=== PATIENT | male | born 1935 | race Caucasian/White ===

== ENCOUNTER 2019-12-18 15:50 | Inpatient (IN) ==
[2019-12-18] MEDS ORDERED: Isovue-370 500 ML BOTTLE IVP ONE (17:32)
[2019-12-18 17:34] LABS: Basophils % 0.5 %; Eosinophils % 0.4 %; Hematocrit 41.4 % (37.5-50.1); Hemoglobin 13.5 g/dL (12.9-16.9); Immature Granulocytes % 0.2 % (0-4); Lymphocytes # 0.4 K/mcL (0.6-4.6); Lymphocytes % 4.9 %; Mean Corpuscular HGB Conc 32.6 g/dL (31.6-35.5); Mean Corpuscular Volume 104.3 fL (83.0-100.0); Mean Platelet Volume 11.4 fL (9.4-12.4); Monocytes # 0.8 K/mcL (0.0-1.3); Monocytes % 9.5 %; Neutrophils # 7.1 K/mcL (1.6-8.9); Platelet Count 226 K/mcL (140-400); Red Blood Count 3.97 M/mcL (4.19-5.50); Red Cell Distribution Width 13.4 % (11.5-14.5); Segmented Neutrophils % 84.5 %; White Blood Count 8.4 K/mcL (4.3-11.1)
[2019-12-18 17:47] LABS: INR 1.5; Prothrombin Time 16.8 Seconds (9.4-12.1)
[2019-12-18 17:50] LABS: Activated Partial Thrombo Time 32.1 Seconds (26.0-36.0)
[2019-12-18 17:53] LABS: Alanine Aminotransferase 66 Units/L (7-52); Albumin 3.8 g/dL (3.5-5.7); Alkaline Phosphatase 327 Units/L (34-104); Amylase 46 Units/L (29-103); Aspartate Amino Transferase 96 Units/L (13-39); BUN/Creatinine Ratio 24 (6-26); Bilirubin,Direct 0.7 mg/dL (0.0-0.2); Bilirubin,Indirect 0.8 mg/dL (0.0-1.0); Bilirubin,Total 1.5 mg/dL (0.3-1.0); Blood Urea Nitrogen 23 mg/dL (8-23); Calcium 9.4 mg/dL (8.6-10.3); Carbon Dioxide 25 mEq/L (23-29); Chloride 98 mEq/L (98-107); Glucose 104 mg/dL (70-105); Lipase 37 Units/L (11-82); Osmolality,Calculated 280 (280-300); Potassium 4.5 mEq/L (3.5-5.1); Sodium 133 mEq/L (136-145); Total Protein 7.8 g/dL (6.4-8.9); eGFR For African Americans > 60 (> 60); eGFR For Non-African Americans > 60 (> 60)
[2019-12-18 19:05] LABS: Troponin I < 0.03 ng/mL (< 0.04)
[2019-12-18 19:06] LABS: Bacteria,Urine Few per hpf (None-Few); Bilirubin,Urine Small (Negative); Blood,Urine Negative (Negative); Calcium Oxalate Crystals,Urine Present; Clarity,Urine Turbid (Clear); Color,Urine Dark-Yellow (Yellow); Glucose,Urine (UA) Normal (Normal); Hyaline Casts,Urine Many per lpf (None Seen); Ketones,Urine 10 mg/dL (Negative); Leukocyte Esterase,Urine Trace (Negative); Mucus,Urine Many per lpf (None-Few); Nitrite,Urine Negative (Negative); Protein,Urine 200 mg/dL (Neg-Trace); Specific Gravity,Urine > 1.030 (1.010-1.025); Squamous Epithelial Cell,Urine Few per hpf (None-Few); WBC,Urine 15-30 per hpf (0-3)
[2019-12-18] MEDS ORDERED: Pantoprazole 40 MG VIAL IVP ONE (19:26)
[2019-12-18] MEDS ORDERED: 0.9 % Sodium Chloride 1,000 ML IVC STA (19:43)
[2019-12-18] MEDS ORDERED: *HR* HYDROcodone/Acet 5/325 mg TABLET PO PRN (21:22)
[2019-12-18] MEDS ORDERED: Naloxone 0.4 MG/ML INJ IVP PRN (21:22)
[2019-12-18] MEDS ORDERED: Ibuprofen 400 MG TABLET PO PRN (21:22)
[2019-12-18] MEDS ORDERED: Ondansetron 4 MG/2 ML VIAL IVP PRN (21:22)
[2019-12-18] MEDS ORDERED: 0.9 % Sodium Chloride 1,000 ML IVC SCH ×2 (21:30→22:00)
[2019-12-18 21:46] LABS: Magnesium 2.2 mg/dL (1.6-2.6)
[2019-12-18] MEDS ORDERED: *HR* Heparin 5,000 UNIT/ML VIAL SQ SCH (22:00)
[2019-12-19 00:32] LABS: Protein/Creatinine Ratio,Urine 0.34 mg/mg (0.00-0.20)
[2019-12-19 02:35] LABS: Hematocrit 37.7 % (37.5-50.1); Hemoglobin 12.2 g/dL (12.9-16.9); Mean Corpuscular HGB Conc 32.4 g/dL (31.6-35.5); Mean Platelet Volume 12.2 fL (9.4-12.4); Platelet Count 178 K/mcL (140-400); Red Blood Count 3.59 M/mcL (4.19-5.50); Red Cell Distribution Width 13.7 % (11.5-14.5); White Blood Count 8.2 K/mcL (4.3-11.1)
[2019-12-19 02:41] LABS: INR 1.5; Prothrombin Time 17.1 Seconds (9.4-12.1)
[2019-12-19 02:55] LABS: Magnesium 2.1 mg/dL (1.6-2.6); Phosphorous 3.3 mg/dL (2.7-4.5)
[2019-12-19 02:59] LABS: BUN/Creatinine Ratio 26 (6-26); Blood Urea Nitrogen 20 mg/dL (8-23); C-Reactive Protein 43 mg/L (Less than 10); Calcium 8.5 mg/dL (8.6-10.3); Carbon Dioxide 23 mEq/L (23-29); Chloride 103 mEq/L (98-107); Glucose 89 mg/dL (70-105); Osmolality,Calculated 282 (280-300); Potassium 4.2 mEq/L (3.5-5.1); Sodium 135 mEq/L (136-145); eGFR For African Americans > 60 (> 60); eGFR For Non-African Americans > 60 (> 60)
[2019-12-19 03:11] LABS: Thyroid Stimulating Hormone 1.568 mcIU/mL (0.340-5.600)
[2019-12-19] MEDS: Pantoprazole 40 MG VIAL IVP SCH ×2 (05:15→17:49)
[2019-12-19 08:45] LABS: Bilirubin,Direct 1.1 mg/dL (0.0-0.2); Bilirubin,Indirect 0.8 mg/dL (0.0-1.0); Bilirubin,Total 1.9 mg/dL (0.3-1.0); Globulin 3.1 g/dL (2.4-3.5); Total Protein 6.1 g/dL (6.4-8.9)
[2019-12-19] MEDS ORDERED: Lidocaine -MPF 2% 2 ML VIAL ONE ×2 (12:54→13:38)
[2019-12-19] MEDS ORDERED: *HR* Propofol 200 MG/20 ML VIAL IVP ONE ×2 (12:54→13:36)
[2019-12-19] MEDS ORDERED: *HR* EPINEPHrine 1 MG/10 ML SYRINGE INTRATRACH PRN (13:38)
[2019-12-19] MEDS ORDERED: Ondansetron 4 MG/2 ML VIAL ONE (13:52)
[2019-12-19] MEDS: cefTRIAXone 1,000 MG in Water for inj. (sterile) 10 ML IVP SCH (14:08)
[2019-12-19 15:16] LABS: Hematocrit 36.1 % (37.5-50.1); Hemoglobin 11.8 g/dL (12.9-16.9)
[2019-12-20 05:22] LABS: Basophils % 0.2 %; Eosinophils # 0.1 K/mcL (0.0-0.6); Eosinophils % 0.6 %; Hematocrit 34.7 % (37.5-50.1); Hemoglobin 11.1 g/dL (12.9-16.9); Immature Granulocytes % 0.5 % (0-4); Lymphocytes # 0.4 K/mcL (0.6-4.6); Mean Corpuscular Hemoglobin 33.2 pg (28.0-33.3); Mean Corpuscular Volume 103.9 fL (83.0-100.0); Mean Platelet Volume 11.3 fL (9.4-12.4); Monocytes # 0.8 K/mcL (0.0-1.3); Neutrophils # 6.7 K/mcL (1.6-8.9); Platelet Count 179 K/mcL (140-400); Red Blood Count 3.34 M/mcL (4.19-5.50); Red Cell Distribution Width 13.9 % (11.5-14.5); Segmented Neutrophils % 83.7 %
[2019-12-20] MEDS: Pantoprazole 40 MG VIAL IVP SCH ×2 (05:41→17:57)
[2019-12-20 05:43] LABS: Alanine Aminotransferase 89 Units/L (7-52); Albumin 2.9 g/dL (3.5-5.7); Albumin/Globulin Ratio 0.9 (1.1-2.2); Alkaline Phosphatase 295 Units/L (34-104); Aspartate Amino Transferase 116 Units/L (13-39); BUN/Creatinine Ratio 26 (6-26); Bilirubin,Total 1.4 mg/dL (0.3-1.0); Blood Urea Nitrogen 20 mg/dL (8-23); Calcium 8.6 mg/dL (8.6-10.3); Carbon Dioxide 24 mEq/L (23-29); Chloride 104 mEq/L (98-107); Globulin 3.2 g/dL (2.4-3.5); Glucose 78 mg/dL (70-105); Osmolality,Calculated 283 (280-300); Potassium 4.1 mEq/L (3.5-5.1); Sodium 136 mEq/L (136-145); Total Protein 6.1 g/dL (6.4-8.9); eGFR For African Americans > 60 (> 60); eGFR For Non-African Americans > 60 (> 60)
[2019-12-20] MEDS: cefTRIAXone 1,000 MG in Water for inj. (sterile) 10 ML IVP SCH (08:36)
[2019-12-20] MEDS: Ringers Solution, Lactated 1,000 ML IVC SCH ×2 (08:36→21:35)
[2019-12-20] MEDS ORDERED: *HR* FentaNYL (PF) 100 MCG/2 ML VIAL IVP ONE (09:03)
[2019-12-20] MEDS ORDERED: *HR* Midazolam HCl 2 MG/2 ML VIAL IVP ONE (09:03)
[2019-12-20] MEDS: traZODone 50 MG TABLET PO SCH (20:47)
[2019-12-21 04:00] LABS: Basophils % 0.4 %; Eosinophils # 0.1 K/mcL (0.0-0.6); Hematocrit 33.1 % (37.5-50.1); Hemoglobin 10.7 g/dL (12.9-16.9); Immature Granulocytes % 0.6 % (0-4); Lymphocytes # 0.3 K/mcL (0.6-4.6); Lymphocytes % 4.4 %; Mean Corpuscular HGB Conc 32.3 g/dL (31.6-35.5); Mean Corpuscular Hemoglobin 33.5 pg (28.0-33.3); Mean Corpuscular Volume 103.8 fL (83.0-100.0); Mean Platelet Volume 11.6 fL (9.4-12.4); Monocytes # 0.9 K/mcL (0.0-1.3); Neutrophils # 6.3 K/mcL (1.6-8.9); Platelet Count 170 K/mcL (140-400); Red Blood Count 3.19 M/mcL (4.19-5.50); Red Cell Distribution Width 13.7 % (11.5-14.5); Segmented Neutrophils % 81.6 %; White Blood Count 7.8 K/mcL (4.3-11.1)
[2019-12-21 04:17] LABS: Alanine Aminotransferase 84 Units/L (7-52); Albumin 2.7 g/dL (3.5-5.7); Albumin/Globulin Ratio 0.9 (1.1-2.2); Alkaline Phosphatase 323 Units/L (34-104); Aspartate Amino Transferase 116 Units/L (13-39); BUN/Creatinine Ratio 24 (6-26); Bilirubin,Total 1.7 mg/dL (0.3-1.0); Blood Urea Nitrogen 16 mg/dL (8-23); Carbon Dioxide 23 mEq/L (23-29); Chloride 102 mEq/L (98-107); Glucose 73 mg/dL (70-105); Osmolality,Calculated 278 (280-300); Sodium 134 mEq/L (136-145); Total Protein 5.7 g/dL (6.4-8.9); eGFR For African Americans > 60 (> 60); eGFR For Non-African Americans > 60 (> 60)
[2019-12-21] MEDS: Pantoprazole 40 MG VIAL IVP SCH ×2 (05:07→18:07)
[2019-12-21] MEDS: Ringers Solution, Lactated 1,000 ML IVC SCH ×2 (10:10→23:33)
[2019-12-21] MEDS: cefTRIAXone 1,000 MG in Water for inj. (sterile) 10 ML IVP SCH (10:10)
[2019-12-21] MEDS: traZODone 50 MG TABLET PO SCH (21:29)
[2019-12-22] MEDS: Pantoprazole 40 MG VIAL IVP SCH ×2 (05:29→16:54)
[2019-12-22 05:43] LABS: INR 1.7; Prothrombin Time 18.9 Seconds (9.4-12.1)
[2019-12-22 05:45] LABS: Basophils % 0.3 %; Eosinophils # 0.1 K/mcL (0.0-0.6); Hematocrit 33.1 % (37.5-50.1); Hemoglobin 10.6 g/dL (12.9-16.9); Immature Granulocytes % 0.7 % (0-4); Lymphocytes # 0.3 K/mcL (0.6-4.6); Lymphocytes % 4.3 %; Mean Corpuscular Hemoglobin 33.2 pg (28.0-33.3); Mean Corpuscular Volume 103.8 fL (83.0-100.0); Mean Platelet Volume 11.4 fL (9.4-12.4); Monocytes # 0.8 K/mcL (0.0-1.3); Monocytes % 10.6 %; Neutrophils # 6.4 K/mcL (1.6-8.9); Platelet Count 170 K/mcL (140-400); Red Blood Count 3.19 M/mcL (4.19-5.50); Red Cell Distribution Width 13.8 % (11.5-14.5); Segmented Neutrophils % 83.1 %; White Blood Count 7.7 K/mcL (4.3-11.1)
[2019-12-22 06:00] LABS: Alanine Aminotransferase 117 Units/L (7-52); Albumin 2.7 g/dL (3.5-5.7); Albumin/Globulin Ratio 0.9 (1.1-2.2); Alkaline Phosphatase 377 Units/L (34-104); Aspartate Amino Transferase 173 Units/L (13-39); BUN/Creatinine Ratio 21 (6-26); Bilirubin,Total 2.7 mg/dL (0.3-1.0); Blood Urea Nitrogen 15 mg/dL (8-23); Calcium 8.4 mg/dL (8.6-10.3); Carbon Dioxide 27 mEq/L (23-29); Chloride 100 mEq/L (98-107); Glucose 71 mg/dL (70-105); Osmolality,Calculated 277 (280-300); Potassium 4.1 mEq/L (3.5-5.1); Sodium 134 mEq/L (136-145); Total Protein 5.7 g/dL (6.4-8.9); eGFR For African Americans > 60 (> 60); eGFR For Non-African Americans > 60 (> 60)
[2019-12-22] MEDS ORDERED: *HR* Vasopressin 20 UNIT/ML VIAL ONE (07:12)
[2019-12-22] MEDS ORDERED: Lidocaine -MPF 2% 2 ML VIAL ONE (07:18)
[2019-12-22] MEDS ORDERED: *HR* FentaNYL (PF) 100 MCG/2 ML VIAL ONE (07:18)
[2019-12-22] MEDS ORDERED: *HR* Rocuronium Bromide 50 MG/5 ML VIAL ONE ×2 (07:18→09:08)
[2019-12-22] MEDS ORDERED: Ondansetron 4 MG/2 ML VIAL ONE (07:18)
[2019-12-22] MEDS ORDERED: *HR* Propofol 200 MG/20 ML VIAL IVP ONE (07:18)
[2019-12-22] MEDS ORDERED: Dexamethasone 4 MG/ML VIAL ONE (07:18)
[2019-12-22] MEDS ORDERED: *HR* Labetalol 20 MG/4 ML SYRINGE IVP PRN (07:21)
[2019-12-22] MEDS ORDERED: *HR* Meperidine 25 MG/ML SYRINGE IVP PRN (07:21)
[2019-12-22] MEDS ORDERED: *HR* HYDROmorphone PF 0.5 MG/0.5 ML SYRINGE IVP PRN (07:21)
[2019-12-22] MEDS ORDERED: *HR* Midazolam HCl 2 MG/2 ML VIAL IVP PRN (07:21)
[2019-12-22] MEDS ORDERED: *HR* FentaNYL (PF) 100 MCG/2 ML VIAL IVP PRN (07:21)
[2019-12-22] MEDS ORDERED: *HR* Promethazine 25 MG/ML VIAL IVP PRN (07:21)
[2019-12-22] MEDS ORDERED: *HR* PHENYLEPHRINE 1,000 MCG/10 ML SYRINGE IVP ONE ×3 (07:59→09:05)
[2019-12-22] MEDS ORDERED: ceFAZolin 2,000 MG in Water for inj. (sterile) 20 ML IVP ONE (08:43)
[2019-12-22] MEDS ORDERED: *HR* Phenylephrine 10 MG/ML VIAL ONE (09:10)
[2019-12-22] MEDS ORDERED: EPHEDrine 50 MG/ML VIAL ONE (09:15)
[2019-12-22] MEDS ORDERED: *HR* HYDROMORPHONE 2 MG/ML VIAL ONE (09:36)
[2019-12-22] MEDS: Ringers Solution, Lactated 1,000 ML IVC SCH ×2 (11:28→23:36)
[2019-12-22] MEDS ORDERED: Naloxone 0.4 MG/ML INJ IVP PRN (11:32)
[2019-12-22] MEDS: *HR* Heparin 5,000 UNIT/ML VIAL SQ SCH ×2 (12:38→16:59)
[2019-12-22] MEDS: Acetaminophen IV 1,000 MG/100 ML INFUS..BTL IVPB SCH ×3 (13:35→23:35)
[2019-12-22] MEDS ORDERED: CeFAZolin 2 GM/120 ML BAG IVPB SCH (16:00)
[2019-12-22] MEDS: ceFAZolin 2,000 MG in 0.9 % Sodium Chloride 100 ML IVPB SCH ×2 (17:03→23:34)
[2019-12-22] MEDS ORDERED: traZODone 50 MG TABLET PO SCH (21:00)
[2019-12-22] MEDS: Chloraseptic Spray 177 ML BOTTLE MM PRN (23:41)
[2019-12-23 03:02] LABS: BUN/Creatinine Ratio 24 (6-26); Blood Urea Nitrogen 23 mg/dL (8-23); Calcium 8.5 mg/dL (8.6-10.3); Carbon Dioxide 24 mEq/L (23-29); Chloride 99 mEq/L (98-107); Glucose 93 mg/dL (70-105); Osmolality,Calculated 281 (280-300); Phosphorous 4.5 mg/dL (2.7-4.5); Potassium 4.2 mEq/L (3.5-5.1); Sodium 134 mEq/L (136-145); Triglycerides 73 mg/dL (< 150); eGFR For African Americans > 60 (> 60); eGFR For Non-African Americans > 60 (> 60)
[2019-12-23] MEDS: Acetaminophen IV 1,000 MG/100 ML INFUS..BTL IVPB SCH ×3 (05:19→18:45)
[2019-12-23] MEDS: Pantoprazole 40 MG VIAL IVP SCH ×2 (05:21→18:14)
[2019-12-23] MEDS: *HR* Heparin 5,000 UNIT/ML VIAL SQ SCH (05:21)
[2019-12-23] MEDS: Chloraseptic Spray 177 ML BOTTLE MM PRN (05:41)
[2019-12-23] MEDS ORDERED: Dextrose Gel 15 GM/37.5 ML TUBE PO PRN ×2 (08:54)
[2019-12-23] MEDS ORDERED: D5% in Water 1,000 ML IVC PRN (08:54)
[2019-12-23] MEDS ORDERED: *HR* Dextrose 50 % in Water (Vial) 50 ML VIAL IVP PRN (08:54)
[2019-12-23 08:58] LABS: Hematocrit 36.4 % (37.5-50.1); Hemoglobin 11.8 g/dL (12.9-16.9); Mean Corpuscular HGB Conc 32.4 g/dL (31.6-35.5); Mean Corpuscular Hemoglobin 34.6 pg (28.0-33.3); Mean Corpuscular Volume 106.7 fL (83.0-100.0); Platelet Count 158 K/mcL (140-400); Red Blood Count 3.41 M/mcL (4.19-5.50); Red Cell Distribution Width 14.5 % (11.5-14.5); White Blood Count 9.1 K/mcL (4.3-11.1)
[2019-12-23] MEDS: ceFAZolin 2,000 MG in 0.9 % Sodium Chloride 100 ML IVPB SCH (08:59)
[2019-12-23] MEDS ORDERED: D10% in Water 500 ML IVC PRN (10:49)
[2019-12-23] MEDS: Ringers Solution, Lactated 1,000 ML IVC SCH ×2 (11:57→13:39)
[2019-12-23] MEDS: Insulin LISPRO 300 UNITS/3 ML VIAL SQ SCH ×4 (13:34→23:44)
[2019-12-23 16:49] LABS: Hematocrit 33.4 % (37.5-50.1); Hemoglobin 10.5 g/dL (12.9-16.9)
[2019-12-23] MEDS ORDERED: Clinimix E 5%-15% SOLUTION 2,000 ML with MVI, adult with vitamin K 10 ML IVC SCH (17:00)
[2019-12-23 23:55] LABS: Hematocrit 31.6 % (37.5-50.1); Hemoglobin 10.3 g/dL (12.9-16.9)
[2019-12-24] MEDS: Acetaminophen IV 1,000 MG/100 ML INFUS..BTL IVPB SCH ×4 (00:35→18:09)
[2019-12-24] MEDS: Ringers Solution, Lactated 1,000 ML IVC SCH (04:09)
[2019-12-24] MEDS: Insulin LISPRO 300 UNITS/3 ML VIAL SQ SCH ×6 (04:12→23:41)
[2019-12-24 06:24] LABS: BUN/Creatinine Ratio 36 (6-26); Blood Urea Nitrogen 27 mg/dL (8-23); Calcium 8.3 mg/dL (8.6-10.3); Carbon Dioxide 29 mEq/L (23-29); Chloride 102 mEq/L (98-107); Glucose 119 mg/dL (70-105); Magnesium 2.1 mg/dL (1.6-2.6); Osmolality,Calculated 286 (280-300); Phosphorous 1.9 mg/dL (2.7-4.5); Sodium 135 mEq/L (136-145); eGFR For African Americans > 60 (> 60); eGFR For Non-African Americans > 60 (> 60)
[2019-12-24] MEDS: Pantoprazole 40 MG VIAL IVP SCH ×2 (06:41→18:11)
[2019-12-24 06:44] LABS: Basophils % 0.1 %; Eosinophils # 0.1 K/mcL (0.0-0.6); Eosinophils % 1.3 %; Hematocrit 30.6 % (37.5-50.1); Hemoglobin 10.1 g/dL (12.9-16.9); Immature Granulocytes % 0.3 % (0-4); Lymphocytes # 0.3 K/mcL (0.6-4.6); Lymphocytes % 3.4 %; Mean Corpuscular Hemoglobin 34.7 pg (28.0-33.3); Mean Corpuscular Volume 105.2 fL (83.0-100.0); Mean Platelet Volume 12.1 fL (9.4-12.4); Monocytes # 0.7 K/mcL (0.0-1.3); Monocytes % 8.3 %; Neutrophils # 7.5 K/mcL (1.6-8.9); Platelet Count 171 K/mcL (140-400); Red Blood Count 2.91 M/mcL (4.19-5.50); Red Cell Distribution Width 14.8 % (11.5-14.5); Segmented Neutrophils % 86.6 %; White Blood Count 8.7 K/mcL (4.3-11.1)
[2019-12-24] MEDS ORDERED: Clinimix E 5%-15% SOLUTION 2,000 ML with MVI, adult with vitamin K 10 ML IVC SCH (17:00)
[2019-12-24] MEDS ORDERED: *HR* FentaNYL (PF) 100 MCG/2 ML VIAL IVP PRN (18:43)
[2019-12-25] MEDS: Insulin LISPRO 300 UNITS/3 ML VIAL SQ SCH ×6 (03:46→23:51)
[2019-12-25 03:56] LABS: Basophils % 0.2 %; Eosinophils # 0.2 K/mcL (0.0-0.6); Eosinophils % 1.6 %; Hematocrit 31.7 % (37.5-50.1); Hemoglobin 10.2 g/dL (12.9-16.9); Immature Granulocytes % 0.9 % (0-4); Lymphocytes # 0.4 K/mcL (0.6-4.6); Lymphocytes % 4.1 %; Mean Corpuscular HGB Conc 32.2 g/dL (31.6-35.5); Mean Corpuscular Hemoglobin 33.8 pg (28.0-33.3); Mean Platelet Volume 11.9 fL (9.4-12.4); Monocytes # 0.8 K/mcL (0.0-1.3); Monocytes % 7.8 %; Neutrophils # 8.2 K/mcL (1.6-8.9); Platelet Count 190 K/mcL (140-400); Red Blood Count 3.02 M/mcL (4.19-5.50); Red Cell Distribution Width 15.1 % (11.5-14.5); Segmented Neutrophils % 85.4 %; White Blood Count 9.6 K/mcL (4.3-11.1)
[2019-12-25 04:08] LABS: BUN/Creatinine Ratio 38 (6-26); Blood Urea Nitrogen 22 mg/dL (8-23); Calcium 8.2 mg/dL (8.6-10.3); Carbon Dioxide 28 mEq/L (23-29); Chloride 103 mEq/L (98-107); Glucose 115 mg/dL (70-105); Magnesium 2.2 mg/dL (1.6-2.6); Osmolality,Calculated 284 (280-300); Phosphorous 2.4 mg/dL (2.7-4.5); Potassium 3.9 mEq/L (3.5-5.1); Sodium 135 mEq/L (136-145); eGFR For African Americans > 60 (> 60); eGFR For Non-African Americans > 60 (> 60)
[2019-12-25] MEDS: Pantoprazole 40 MG VIAL IVP SCH ×2 (05:37→17:07)
[2019-12-25] MEDS ORDERED: Clinimix E 5%-15% SOLUTION 2,000 ML with MVI, adult with vitamin K 10 ML IVC SCH (17:00)
[2019-12-25] MEDS: Ondansetron 4 MG/2 ML VIAL IVP PRN (17:49)
[2019-12-25] MEDS: *HR* FentaNYL (PF) 100 MCG/2 ML VIAL IVP PRN ×2 (18:54→23:47)
[2019-12-26] MEDS: *HR* FentaNYL (PF) 100 MCG/2 ML VIAL IVP PRN ×2 (03:20→09:04)
[2019-12-26] MEDS: Insulin LISPRO 300 UNITS/3 ML VIAL SQ SCH ×5 (04:59→21:41)
[2019-12-26] MEDS: Pantoprazole 40 MG VIAL IVP SCH ×2 (06:22→16:56)
[2019-12-26 06:57] LABS: BUN/Creatinine Ratio 50 (6-26); Blood Urea Nitrogen 27 mg/dL (8-23); Calcium 8.3 mg/dL (8.6-10.3); Carbon Dioxide 30 mEq/L (23-29); Chloride 103 mEq/L (98-107); Glucose 107 mg/dL (70-105); Magnesium 2.2 mg/dL (1.6-2.6); Osmolality,Calculated 290 (280-300); Phosphorous 2.7 mg/dL (2.7-4.5); Potassium 3.9 mEq/L (3.5-5.1); Sodium 137 mEq/L (136-145); eGFR For African Americans > 60 (> 60); eGFR For Non-African Americans > 60 (> 60)
[2019-12-26] MEDS: *HR* FentaNYL PATCH 12 MCG PATCH TD SCH (13:33)
[2019-12-26] MEDS: Ondansetron 4 MG/2 ML VIAL IVP PRN ×2 (13:36→21:40)
[2019-12-26] MEDS ORDERED: *HR* FentaNYL (PF) 100 MCG/2 ML VIAL IVP ONE (15:40)
[2019-12-26] MEDS ORDERED: Clinimix E 5%-15% SOLUTION 2,000 ML with MVI, adult with vitamin K 10 ML IVC SCH (17:00)
[2019-12-26] MEDS: Morphine Sulfate 2 MG/ML SYRINGE IVP PRN ×2 (18:14→22:53)
[2019-12-26] MEDS: rOPINIRole 1 MG TABLET PO SCH (23:38)
[2019-12-27] MEDS: Insulin LISPRO 300 UNITS/3 ML VIAL SQ SCH ×6 (00:14→21:25)
[2019-12-27] MEDS: Morphine Sulfate 2 MG/ML SYRINGE IVP PRN ×3 (03:48→21:30)
[2019-12-27 04:34] LABS: BUN/Creatinine Ratio 60 (6-26); Blood Urea Nitrogen 33 mg/dL (8-23); Calcium 7.8 mg/dL (8.6-10.3); Carbon Dioxide 29 mEq/L (23-29); Chloride 103 mEq/L (98-107); Glucose 133 mg/dL (70-105); Magnesium 2.2 mg/dL (1.6-2.6); Osmolality,Calculated 293 (280-300); Phosphorous 2.7 mg/dL (2.7-4.5); Potassium 4.1 mEq/L (3.5-5.1); Sodium 137 mEq/L (136-145); eGFR For African Americans > 60 (> 60); eGFR For Non-African Americans > 60 (> 60)
[2019-12-27] MEDS: Ondansetron 4 MG/2 ML VIAL IVP PRN ×2 (06:03→17:24)
[2019-12-27] MEDS: Pantoprazole 40 MG VIAL IVP SCH ×2 (06:03→17:24)
[2019-12-27] MEDS ORDERED: Gadolinium Contrast Agent (WT Based) IV PRN (15:19)
[2019-12-27 16:47] LABS: Immature Reticulocyte % 41.6 % (11.0-38.0); Retculocyte # 0.14 M/mcL (0.05-0.10); Reticulocyte % 5.2 % (1.6-2.8)
[2019-12-27] MEDS ORDERED: Clinimix E 5%-15% SOLUTION 2,000 ML with MVI, adult with vitamin K 10 ML IVC SCH (17:00)
[2019-12-27 17:04] LABS: % Iron Saturation 13 % (20-55); Iron 32 mcg/dL (65-175); Transferrin 175 mg/dL (203-362)
[2019-12-27 17:29] LABS: Folate 6.2 ng/mL (3.0-16.0)
[2019-12-27 19:45] LABS: Basophils % 0.3 %; Eosinophils # 0.2 K/mcL (0.0-0.6); Eosinophils % 1.6 %; Hematocrit 28.1 % (37.5-50.1); Hemoglobin 8.8 g/dL (12.9-16.9); Immature Granulocytes % 0.9 % (0-4); Lymphocytes # 0.3 K/mcL (0.6-4.6); Lymphocytes % 2.9 %; Mean Corpuscular HGB Conc 31.3 g/dL (31.6-35.5); Mean Corpuscular Hemoglobin 34.8 pg (28.0-33.3); Mean Corpuscular Volume 111.1 fL (83.0-100.0); Mean Platelet Volume 11.7 fL (9.4-12.4); Monocytes # 0.9 K/mcL (0.0-1.3); Monocytes % 9.4 %; Neutrophils # 7.8 K/mcL (1.6-8.9); Nucleated Red Blood Cells 0.2 /100 WBC (0); Platelet Count 183 K/mcL (140-400); Red Blood Count 2.53 M/mcL (4.19-5.50); Red Cell Distribution Width 15.5 % (11.5-14.5); Segmented Neutrophils % 84.9 %; White Blood Count 9.2 K/mcL (4.3-11.1)
[2019-12-27 20:35] LABS: Macrocytosis Present (Not Present); Platelet Estimate Normal (Normal); Polychromasia 1+ (Not Present)
[2019-12-27] MEDS: rOPINIRole 1 MG TABLET PO SCH (21:31)
[2019-12-28] MEDS: Insulin LISPRO 300 UNITS/3 ML VIAL SQ SCH ×6 (00:34→20:20)
[2019-12-28] MEDS: Morphine Sulfate 2 MG/ML SYRINGE IVP PRN ×5 (01:21→20:24)
[2019-12-28] MEDS: Ondansetron 4 MG/2 ML VIAL IVP PRN (03:41)
[2019-12-28 04:33] LABS: BUN/Creatinine Ratio 66 (6-26); Blood Urea Nitrogen 38 mg/dL (8-23); Calcium 8.2 mg/dL (8.6-10.3); Carbon Dioxide 31 mEq/L (23-29); Chloride 103 mEq/L (98-107); Glucose 118 mg/dL (70-105); Magnesium 2.2 mg/dL (1.6-2.6); Osmolality,Calculated 294 (280-300); Phosphorous 2.9 mg/dL (2.7-4.5); Potassium 4.5 mEq/L (3.5-5.1); Sodium 137 mEq/L (136-145); eGFR For African Americans > 60 (> 60); eGFR For Non-African Americans > 60 (> 60)
[2019-12-28] MEDS: Pantoprazole 40 MG VIAL IVP SCH ×2 (05:36→17:32)
[2019-12-28] MEDS: Megestrol Acetate 400 MG/10 ML UDC PO SCH (08:55)
[2019-12-28] MEDS: Iron Sucrose Complex 200 MG in 0.9 % Sodium Chloride 100 ML IVPB SCH (09:09)
[2019-12-28] MEDS: Ondansetron 4 MG/2 ML VIAL IVP SCH ×3 (11:55→23:02)
[2019-12-28] MEDS ORDERED: Clinimix E 5%-15% SOLUTION 2,000 ML, Parenteral Amino Acid 10% 200 ML with MVI, adult ... IVC SCH (17:00)
[2019-12-28] MEDS: *HR* Heparin 5,000 UNIT/ML VIAL SQ SCH (17:32)
[2019-12-28] MEDS: rOPINIRole 1 MG TABLET PO SCH ×2 (20:19→22:55)
[2019-12-29] MEDS: Insulin LISPRO 300 UNITS/3 ML VIAL SQ SCH ×6 (00:53→21:11)
[2019-12-29] MEDS: Morphine Sulfate 2 MG/ML SYRINGE IVP PRN ×2 (03:01→20:53)
[2019-12-29 03:43] LABS: Basophils % 0.2 %; Eosinophils # 0.2 K/mcL (0.0-0.6); Eosinophils % 2.3 %; Hematocrit 27.1 % (37.5-50.1); Hemoglobin 8.4 g/dL (12.9-16.9); Immature Granulocytes % 1.7 % (0-4); Lymphocytes # 0.3 K/mcL (0.6-4.6); Lymphocytes % 3.3 %; Mean Corpuscular Hemoglobin 34.6 pg (28.0-33.3); Mean Corpuscular Volume 111.5 fL (83.0-100.0); Mean Platelet Volume 11.4 fL (9.4-12.4); Neutrophils # 8.2 K/mcL (1.6-8.9); Nucleated Red Blood Cells 0.2 /100 WBC (0); Platelet Count 231 K/mcL (140-400); Red Blood Count 2.43 M/mcL (4.19-5.50); Red Cell Distribution Width 16.3 % (11.5-14.5); Segmented Neutrophils % 82.5 %; White Blood Count 9.9 K/mcL (4.3-11.1)
[2019-12-29 04:02] LABS: BUN/Creatinine Ratio 62 (6-26); Blood Urea Nitrogen 54 mg/dL (8-23); Calcium 8.6 mg/dL (8.6-10.3); Carbon Dioxide 32 mEq/L (23-29); Chloride 101 mEq/L (98-107); Glucose 116 mg/dL (70-105); Magnesium 2.3 mg/dL (1.6-2.6); Osmolality,Calculated 300 (280-300); Phosphorous 3.1 mg/dL (2.7-4.5); Potassium 4.6 mEq/L (3.5-5.1); Sodium 137 mEq/L (136-145); eGFR For African Americans > 60 (> 60); eGFR For Non-African Americans > 60 (> 60)
[2019-12-29 04:20] LABS: Macrocytosis Present (Not Present); Platelet Estimate Normal (Normal); Polychromasia 1+ (Not Present)
[2019-12-29] MEDS: Pantoprazole 40 MG VIAL IVP SCH ×2 (05:39→18:42)
[2019-12-29] MEDS: *HR* Heparin 5,000 UNIT/ML VIAL SQ SCH (05:39)
[2019-12-29] MEDS: Ondansetron 4 MG/2 ML VIAL IVP SCH ×3 (05:39→18:42)
[2019-12-29] MEDS: Megestrol Acetate 400 MG/10 ML UDC PO SCH ×2 (09:15→16:47)
[2019-12-29] MEDS: Cyanocobalamin (B-12) 1,000 MCG TABLET PO SCH (09:16)
[2019-12-29] MEDS ORDERED: Scopolamine Patch 1.5 MG PATCH.TD72 TD SCH (09:30)
[2019-12-29] MEDS: Iron Sucrose Complex 200 MG in 0.9 % Sodium Chloride 100 ML IVPB SCH (10:41)
[2019-12-29] MEDS ORDERED: 0.9 % Sodium Chloride 1,000 ML IVC ONE (10:53)
[2019-12-29] MEDS: Metoclopramide 10 MG/2 ML VIAL IVP SCH ×2 (12:25→18:42)
[2019-12-29] MEDS: *HR* FentaNYL PATCH 12 MCG PATCH TD SCH (13:11)
[2019-12-29] MEDS: D5% in 0.45% NACL 1,000 ML IVC SCH (15:17)
[2019-12-29] MEDS ORDERED: Clinimix E 5%-15% SOLUTION 2,000 ML, Parenteral Amino Acid 10% 200 ML with MVI, adult ... IVC SCH (17:00)
[2019-12-30] MEDS: Insulin LISPRO 300 UNITS/3 ML VIAL SQ SCH ×3 (00:07→10:07)
[2019-12-30] MEDS: Ondansetron 4 MG/2 ML VIAL IVP SCH ×5 (00:30→23:05)
[2019-12-30] MEDS: Metoclopramide 10 MG/2 ML VIAL IVP SCH ×2 (00:30→05:00)
[2019-12-30] MEDS: Morphine Sulfate 2 MG/ML SYRINGE IVP PRN (02:57)
[2019-12-30 04:02] LABS: Basophils % 0.3 %; Eosinophils # 0.3 K/mcL (0.0-0.6); Eosinophils % 3.5 %; Hematocrit 24.4 % (37.5-50.1); Hemoglobin 7.6 g/dL (12.9-16.9); Immature Granulocytes % 1.8 % (0-4); Lymphocytes # 0.3 K/mcL (0.6-4.6); Lymphocytes % 3.5 %; Mean Corpuscular HGB Conc 31.1 g/dL (31.6-35.5); Mean Corpuscular Hemoglobin 34.2 pg (28.0-33.3); Mean Corpuscular Volume 109.9 fL (83.0-100.0); Monocytes % 10.1 %; Nucleated Red Blood Cells 0.6 /100 WBC (0); Platelet Count 242 K/mcL (140-400); Red Blood Count 2.22 M/mcL (4.19-5.50); Red Cell Distribution Width 16.3 % (11.5-14.5); Segmented Neutrophils % 80.8 %; White Blood Count 9.8 K/mcL (4.3-11.1)
[2019-12-30 04:21] LABS: BUN/Creatinine Ratio 53 (6-26); Blood Urea Nitrogen 40 mg/dL (8-23); Calcium 7.7 mg/dL (8.6-10.3); Carbon Dioxide 29 mEq/L (23-29); Chloride 104 mEq/L (98-107); Glucose 95 mg/dL (70-105); Magnesium 2.2 mg/dL (1.6-2.6); Osmolality,Calculated 296 (280-300); Phosphorous 2.3 mg/dL (2.7-4.5); Potassium 3.9 mEq/L (3.5-5.1); Sodium 138 mEq/L (136-145); Triglycerides 107 mg/dL (< 150); eGFR For African Americans > 60 (> 60); eGFR For Non-African Americans > 60 (> 60)
[2019-12-30] MEDS: D5% in 0.45% NACL 1,000 ML IVC SCH ×2 (04:59→19:04)
[2019-12-30] MEDS: Pantoprazole 40 MG VIAL IVP SCH (05:00)
[2019-12-30] MEDS: Megestrol Acetate 400 MG/10 ML UDC PO SCH (10:15)
[2019-12-30] MEDS: Cyanocobalamin (B-12) 1,000 MCG TABLET PO SCH (10:15)
[2019-12-30] MEDS: Iron Sucrose Complex 200 MG in 0.9 % Sodium Chloride 100 ML IVPB SCH (10:16)
[2019-12-30] MEDS ORDERED: 0.9 % Sodium Chloride 250 ML IVC SCH (17:45)
[2019-12-30 18:25] LABS: Hemoglobin 8.3 g/dL (12.9-16.9)
[2019-12-30] MEDS: Sennosides/Docusate Sodium TABLET PO SCH (21:46)
[2019-12-30 23:27] LABS: Hematocrit 24.2 % (37.5-50.1); Hemoglobin 7.6 g/dL (12.9-16.9)
[2019-12-31] MEDS ORDERED: Morphine Sulfate 2 MG/ML SYRINGE IVP ONE (00:23)
[2019-12-31 04:47] LABS: Hematocrit 24.8 % (37.5-50.1); Hemoglobin 7.8 g/dL (12.9-16.9); Mean Corpuscular HGB Conc 31.5 g/dL (31.6-35.5); Mean Corpuscular Volume 111.2 fL (83.0-100.0); Mean Platelet Volume 11.1 fL (9.4-12.4); Platelet Count 250 K/mcL (140-400); Red Blood Count 2.23 M/mcL (4.19-5.50); White Blood Count 11.1 K/mcL (4.3-11.1)
[2019-12-31 05:05] LABS: BUN/Creatinine Ratio 45 (6-26); Blood Urea Nitrogen 31 mg/dL (8-23); Calcium 7.6 mg/dL (8.6-10.3); Carbon Dioxide 24 mEq/L (23-29); Chloride 104 mEq/L (98-107); Glucose 89 mg/dL (70-105); Osmolality,Calculated 292 (280-300); Potassium 3.9 mEq/L (3.5-5.1); Sodium 138 mEq/L (136-145); eGFR For African Americans > 60 (> 60); eGFR For Non-African Americans > 60 (> 60)
[2019-12-31] MEDS: Ondansetron 4 MG/2 ML VIAL IVP SCH ×2 (05:34→12:22)
[2019-12-31 08:19] LABS: Magnesium 2.3 mg/dL (1.6-2.6); Phosphorous 3.1 mg/dL (2.7-4.5)
[2019-12-31] MEDS: Cyanocobalamin (B-12) 1,000 MCG TABLET PO SCH (09:08)
[2019-12-31] MEDS: Megestrol Acetate 400 MG/10 ML UDC PO SCH (09:08)
[2019-12-31] MEDS: Sennosides/Docusate Sodium TABLET PO SCH ×2 (09:09→20:29)
[2019-12-31] MEDS: D5% in 0.45% NACL 1,000 ML IVC SCH (09:15)
[2019-12-31] MEDS: Iron Sucrose Complex 200 MG in 0.9 % Sodium Chloride 100 ML IVPB SCH (09:19)
[2019-12-31] MEDS ORDERED: *HR* LORazepam 2 MG/ML VIAL IVP ONE (14:16)
[2019-12-31] MEDS ORDERED: *HR* LORazepam 0.5 MG TABLET PO PRN (14:19)
[2019-12-31] MEDS ORDERED: Water for inj. (sterile) 10 ML ONE (15:00)
[2019-12-31] MEDS ORDERED: *HR* Alteplase (Cathflo) 2 MG VIAL IVP STA ×2 (16:09→16:11)
[2019-12-31] MEDS: Haloperidol Oral Conc 10 MG/5 ML UDC PO SCH ×4 (16:37→23:51)
[2019-12-31] MEDS ORDERED: Metoclopramide 10 MG/2 ML VIAL IVP SCH (18:00)
[2019-12-31 22:56] LABS: Hematocrit 25.1 % (37.5-50.1); Hemoglobin 7.8 g/dL (12.9-16.9)
[2020-01-01] MEDS: D5% in 0.45% NACL 1,000 ML IVC SCH ×2 (02:43→16:03)
[2020-01-01 05:57] LABS: Hematocrit 25.3 % (37.5-50.1); Mean Corpuscular HGB Conc 31.6 g/dL (31.6-35.5); Mean Corpuscular Hemoglobin 35.7 pg (28.0-33.3); Mean Corpuscular Volume 112.9 fL (83.0-100.0); Mean Platelet Volume 11.1 fL (9.4-12.4); Platelet Count 231 K/mcL (140-400); Red Blood Count 2.24 M/mcL (4.19-5.50); Red Cell Distribution Width 17.3 % (11.5-14.5); White Blood Count 15.1 K/mcL (4.3-11.1)
[2020-01-01 06:16] LABS: BUN/Creatinine Ratio 38 (6-26); Blood Urea Nitrogen 27 mg/dL (8-23); Calcium 7.9 mg/dL (8.6-10.3); Carbon Dioxide 27 mEq/L (23-29); Chloride 104 mEq/L (98-107); Glucose 85 mg/dL (70-105); Magnesium 2.2 mg/dL (1.6-2.6); Osmolality,Calculated 284 (280-300); Phosphorous 2.8 mg/dL (2.7-4.5); Potassium 3.8 mEq/L (3.5-5.1); Sodium 135 mEq/L (136-145); eGFR For African Americans > 60 (> 60); eGFR For Non-African Americans > 60 (> 60)
[2020-01-01] MEDS: Haloperidol Oral Conc 10 MG/5 ML UDC PO SCH ×4 (07:48→23:35)
[2020-01-01 08:50] LABS: Basophils % 0.3 %; Eosinophils # 0.3 K/mcL (0.0-0.6); Eosinophils % 1.9 %; Immature Granulocytes % 0.8 % (0-4); Lymphocytes # 0.3 K/mcL (0.6-4.6); Lymphocytes % 1.9 %; Monocytes # 0.9 K/mcL (0.0-1.3); Monocytes % 6.4 %; Nucleated Red Blood Cells 0.1 /100 WBC (0); Segmented Neutrophils % 88.7 %
[2020-01-01] MEDS: Iron Sucrose Complex 200 MG in 0.9 % Sodium Chloride 100 ML IVPB SCH (09:34)
[2020-01-01] MEDS: Sennosides/Docusate Sodium TABLET PO SCH ×2 (09:34→20:32)
[2020-01-01] MEDS: Cyanocobalamin (B-12) 1,000 MCG TABLET PO SCH (09:35)
[2020-01-01] MEDS: *HR* FentaNYL PATCH 12 MCG PATCH TD SCH (12:05)
[2020-01-01 13:53] LABS: Bacteria,Urine Few per hpf (None-Few); Bilirubin,Urine Small (Negative); Blood,Urine Trace (Negative); Clarity,Urine Turbid (Clear); Color,Urine Dark-Yellow (Yellow); Glucose,Urine (UA) Normal (Normal); Ketones,Urine Negative (Negative); Leukocyte Esterase,Urine Negative (Negative); Mucus,Urine Many per lpf (None-Few); Nitrite,Urine Negative (Negative); PH,Urine 5.5 pH Units (5.0-8.0); Protein,Urine 50 mg/dL (Neg-Trace); Specific Gravity,Urine > 1.030 (1.010-1.025); Squamous Epithelial Cell,Urine Few per hpf (None-Few)
[2020-01-01] MEDS ORDERED: cefTRIAXone 1,000 MG in Water for inj. (sterile) 10 ML IVP SCH (15:00)
[2020-01-01] MEDS: Piperacillin/Tazobactam 3.375 GM in 0.9 % Sodium Chloride Mini Bag 100 ML IVPB SCH (23:36)
[2020-01-02] MEDS: D5% in 0.45% NACL 1,000 ML IVC SCH ×2 (05:47→18:06)
[2020-01-02] MEDS: Haloperidol Oral Conc 10 MG/5 ML UDC PO SCH ×3 (05:57→18:05)
[2020-01-02] MEDS: Sennosides/Docusate Sodium TABLET PO SCH ×2 (09:28→20:33)
[2020-01-02] MEDS: Cyanocobalamin (B-12) 1,000 MCG TABLET PO SCH (09:28)
[2020-01-02] MEDS: Piperacillin/Tazobactam 3.375 GM in 0.9 % Sodium Chloride Mini Bag 100 ML IVPB SCH (09:28)
[2020-01-02] MEDS ORDERED: Haloperidol Oral Conc 10 MG/5 ML UDC PO PRN ×2 (11:00→14:57)
[2020-01-02] MEDS ORDERED: Sucralfate 1 GM TABLET PO SCH (11:30)
[2020-01-02] MEDS ORDERED: polyethylene glycoL 3350 17 GM POWD.PACK PO PRN (11:52)
[2020-01-02 12:31] LABS: Basophils % 0.2 %; Eosinophils # 0.3 K/mcL (0.0-0.6); Eosinophils % 1.6 %; Hematocrit 26.2 % (37.5-50.1); Lymphocytes # 0.3 K/mcL (0.6-4.6); Lymphocytes % 1.9 %; Mean Corpuscular HGB Conc 30.5 g/dL (31.6-35.5); Mean Corpuscular Hemoglobin 34.8 pg (28.0-33.3); Mean Corpuscular Volume 113.9 fL (83.0-100.0); Monocytes # 0.9 K/mcL (0.0-1.3); Monocytes % 5.8 %; Neutrophils # 14.4 K/mcL (1.6-8.9); Platelet Count 231 K/mcL (140-400); Red Cell Distribution Width 17.5 % (11.5-14.5); Segmented Neutrophils % 89.5 %; White Blood Count 16.1 K/mcL (4.3-11.1)
[2020-01-02 13:00] LABS: Phosphorous 2.4 mg/dL (2.7-4.5)
[2020-01-02 13:07] LABS: BUN/Creatinine Ratio 25 (6-26); Blood Urea Nitrogen 21 mg/dL (8-23); Calcium 7.4 mg/dL (8.6-10.3); Carbon Dioxide 23 mEq/L (23-29); Chloride 102 mEq/L (98-107); Glucose 100 mg/dL (70-105); Osmolality,Calculated 279 (280-300); Potassium 3.8 mEq/L (3.5-5.1); Sodium 133 mEq/L (136-145); eGFR For African Americans > 60 (> 60); eGFR For Non-African Americans > 60 (> 60)
[2020-01-02 14:09] LABS: Macrocytosis Present (Not Present); Platelet Estimate Normal (Normal)
[2020-01-03] MEDS: Haloperidol Oral Conc 10 MG/5 ML UDC PO SCH ×3 (00:14→12:44)
[2020-01-03] MEDS: D5% in 0.45% NACL 1,000 ML IVC SCH (00:21)
[2020-01-03 07:06] LABS: Magnesium 2.1 mg/dL (1.6-2.6); Phosphorous 2.1 mg/dL (2.7-4.5)
[2020-01-03 07:13] LABS: BUN/Creatinine Ratio 27 (6-26); Blood Urea Nitrogen 21 mg/dL (8-23); Calcium 7.7 mg/dL (8.6-10.3); Carbon Dioxide 25 mEq/L (23-29); Chloride 102 mEq/L (98-107); Glucose 100 mg/dL (70-105); Osmolality,Calculated 277 (280-300); Potassium 3.7 mEq/L (3.5-5.1); Sodium 132 mEq/L (136-145); eGFR For African Americans > 60 (> 60); eGFR For Non-African Americans > 60 (> 60)
[2020-01-03 08:55] VITALS: BP 107/70
[2020-01-03 09:19] LABS: Basophils % 0.1 %; Eosinophils # 0.2 K/mcL (0.0-0.6); Eosinophils % 1.4 %; Hematocrit 25.8 % (37.5-50.1); Hemoglobin 7.9 g/dL (12.9-16.9); Lymphocytes # 0.3 K/mcL (0.6-4.6); Lymphocytes % 1.9 %; Mean Corpuscular HGB Conc 30.6 g/dL (31.6-35.5); Mean Corpuscular Hemoglobin 34.6 pg (28.0-33.3); Mean Corpuscular Volume 113.2 fL (83.0-100.0); Monocytes # 0.8 K/mcL (0.0-1.3); Monocytes % 5.4 %; Neutrophils # 13.2 K/mcL (1.6-8.9); Platelet Count 232 K/mcL (140-400); Red Blood Count 2.28 M/mcL (4.19-5.50); Red Cell Distribution Width 17.5 % (11.5-14.5); Segmented Neutrophils % 90.2 %; White Blood Count 14.6 K/mcL (4.3-11.1)
[2020-01-03 09:21] LABS: Macrocytosis Present (Not Present); Platelet Estimate Normal (Normal)
[2020-01-03] MEDS ORDERED: *HR* OxyCODONE Immed Rel 5 MG TABLET PO PRN (09:27)
[2020-01-03] MEDS: Sennosides/Docusate Sodium TABLET PO SCH (10:05)
[2020-01-03] MEDS: Cyanocobalamin (B-12) 1,000 MCG TABLET PO SCH (10:05)
== END 2020-01-03 13:24 | disposition other institution (70) | DRG 826 ==
LOC: EMEROOARM 15:50 → 3ANU 15:50 → SUATTDRO 20:01 → 3ANU 20:52 → SUATTDRO 12-19 13:49 → 3ANU 01-01 07:31
PROVIDERS: ADMIT Student in an Organized Health Care Education/Training Program; ATTEND Family Medicine
PROC: ENDOEBX (2019-12-19 13:00)

== ENCOUNTER 2020-01-13 11:04 | Inpatient (IN) ==
[2020-01-13] MEDS ORDERED: Naloxone 0.4 MG/ML INJ IVP PRN (15:23)
[2020-01-13] MEDS: 0.9 % Sodium Chloride 1,000 ML IVC SCH (16:14)
[2020-01-13 16:44] LABS: Mean Platelet Volume 11.8 fL (9.4-12.4)
[2020-01-13 16:46] LABS: Hematocrit 26.5 % (37.5-50.1); Hemoglobin 8.4 g/dL (12.9-16.9); Immature Platelets 7.1 % (1.1-6.1); Mean Corpuscular HGB Conc 31.7 g/dL (31.6-35.5); Mean Corpuscular Hemoglobin 34.9 pg (28.0-33.3); Red Blood Count 2.41 M/mcL (4.19-5.50); Red Cell Distribution Width 23.3 % (11.5-14.5); White Blood Count 12.4 K/mcL (4.3-11.1)
[2020-01-13 16:59] LABS: Alanine Aminotransferase 51 Units/L (7-52); Albumin 2.5 g/dL (3.5-5.7); Albumin/Globulin Ratio 1.2 (1.1-2.2); Alkaline Phosphatase 326 Units/L (34-104); Aspartate Amino Transferase 110 Units/L (13-39); BUN/Creatinine Ratio 53 (6-26); Bilirubin,Total 3.9 mg/dL (0.3-1.0); Blood Urea Nitrogen 61 mg/dL (8-23); Calcium 7.4 mg/dL (8.6-10.3); Carbon Dioxide 18 mEq/L (23-29); Chloride 109 mEq/L (98-107); Globulin 2.1 g/dL (2.4-3.5); Glucose 74 mg/dL (70-105); Osmolality,Calculated 302 (280-300); Potassium 3.9 mEq/L (3.5-5.1); Sodium 138 mEq/L (136-145); Total Protein 4.6 g/dL (6.4-8.9); eGFR For African Americans > 60 (> 60); eGFR For Non-African Americans > 60 (> 60)
[2020-01-13] MEDS: Pantoprazole 40 MG VIAL IVP SCH (17:36)
[2020-01-13] MEDS ORDERED: Haloperidol Oral Conc 10 MG/5 ML UDC PO PRN (17:52)
[2020-01-13] MEDS ORDERED: *HR* FentaNYL PATCH 12 MCG PATCH TD SCH (18:00)
[2020-01-13] MEDS: Sennosides/Docusate Sodium TABLET PO SCH (20:57)
[2020-01-13] MEDS: rOPINIRole 1 MG TABLET PO SCH (20:57)
[2020-01-14 01:28] LABS: Hematocrit 26.2 % (37.5-50.1); Hemoglobin 8.4 g/dL (12.9-16.9)
[2020-01-14 04:25] LABS: Hematocrit 26.6 % (37.5-50.1); Hemoglobin 8.3 g/dL (12.9-16.9); Mean Corpuscular HGB Conc 31.2 g/dL (31.6-35.5); Mean Corpuscular Hemoglobin 34.6 pg (28.0-33.3); Mean Corpuscular Volume 110.8 fL (83.0-100.0); Mean Platelet Volume 11.5 fL (9.4-12.4); Platelet Count 101 K/mcL (140-400); White Blood Count 12.9 K/mcL (4.3-11.1)
[2020-01-14 04:45] LABS: BUN/Creatinine Ratio 54 (6-26); Blood Urea Nitrogen 64 mg/dL (8-23); Calcium 7.7 mg/dL (8.6-10.3); Carbon Dioxide 19 mEq/L (23-29); Chloride 110 mEq/L (98-107); Glucose 75 mg/dL (70-105); Osmolality,Calculated 303 (280-300); Sodium 138 mEq/L (136-145); eGFR For African Americans > 60 (> 60); eGFR For Non-African Americans 59 (> 60)
[2020-01-14] MEDS: Pantoprazole 40 MG VIAL IVP SCH ×2 (05:32→17:34)
[2020-01-14] MEDS: 0.9 % Sodium Chloride 1,000 ML IVC SCH (05:33)
[2020-01-14] MEDS: rOPINIRole 1 MG TABLET PO SCH ×2 (10:31→21:49)
[2020-01-14] MEDS: Sennosides/Docusate Sodium TABLET PO SCH ×2 (10:31→21:49)
[2020-01-14] MEDS: Haloperidol Oral Conc 10 MG/5 ML UDC PO SCH ×2 (13:37→17:34)
[2020-01-14 15:58] LABS: Hematocrit 27.3 % (37.5-50.1); Hemoglobin 8.4 g/dL (12.9-16.9)
[2020-01-14 16:21] LABS: % Iron Saturation 21 % (20-55); Iron 39 mcg/dL (65-175); Transferrin 133 mg/dL (203-362)
[2020-01-14 16:35] LABS: Folate 4.8 ng/mL (3.0-16.0)
[2020-01-14 16:41] LABS: Ferritin > 1500 ng/mL (20-250)
[2020-01-15] MEDS: Haloperidol Oral Conc 10 MG/5 ML UDC PO SCH ×4 (01:11→17:24)
[2020-01-15 01:24] LABS: Prothrombin Time 22.9 Seconds (9.4-12.1)
[2020-01-15 01:27] LABS: Basophils % 0.2 %; Eosinophils # 0.1 K/mcL (0.0-0.6); Eosinophils % 0.6 %; Hematocrit 27.1 % (37.5-50.1); Hemoglobin 8.5 g/dL (12.9-16.9); Immature Granulocytes % 1.1 % (0-4); Lymphocytes # 0.3 K/mcL (0.6-4.6); Mean Corpuscular HGB Conc 31.4 g/dL (31.6-35.5); Mean Corpuscular Hemoglobin 34.7 pg (28.0-33.3); Mean Corpuscular Volume 110.6 fL (83.0-100.0); Mean Platelet Volume 11.7 fL (9.4-12.4); Monocytes # 0.6 K/mcL (0.0-1.3); Monocytes % 4.4 %; Neutrophils # 12.2 K/mcL (1.6-8.9); Nucleated Red Blood Cells 0.2 /100 WBC (0); Platelet Count 108 K/mcL (140-400); Red Blood Count 2.45 M/mcL (4.19-5.50); Segmented Neutrophils % 91.7 %; White Blood Count 13.3 K/mcL (4.3-11.1)
[2020-01-15 01:49] LABS: BUN/Creatinine Ratio 55 (6-26); Blood Urea Nitrogen 70 mg/dL (8-23); Calcium 7.7 mg/dL (8.6-10.3); Carbon Dioxide 19 mEq/L (23-29); Chloride 110 mEq/L (98-107); Glucose 74 mg/dL (70-105); Osmolality,Calculated 309 (280-300); Potassium 4.3 mEq/L (3.5-5.1); Sodium 140 mEq/L (136-145); eGFR For African Americans > 60 (> 60); eGFR For Non-African Americans 54 (> 60)
[2020-01-15 02:01] LABS: Anisocytosis 1+ (Not Present); Macrocytosis Present (Not Present)
[2020-01-15 02:02] LABS: Platelet Estimate Slight Decrease (Normal)
[2020-01-15] MEDS: Pantoprazole 40 MG VIAL IVP SCH ×2 (05:07→17:24)
[2020-01-15] MEDS: rOPINIRole 1 MG TABLET PO SCH ×2 (08:34→15:37)
[2020-01-15] MEDS: Sennosides/Docusate Sodium TABLET PO SCH ×2 (08:38→21:07)
[2020-01-15] MEDS ORDERED: Morphine Sulfate Oral CONC 10 MG/0.5 ML ORAL.SYG SL PRN ×2 (10:17→14:02)
[2020-01-15] MEDS ORDERED: Saliva Stimulant 100ml BOTTLE PO PRN (11:26)
[2020-01-15] MEDS ORDERED: *HR* FentaNYL PATCH 25 MCG PATCH TD SCH (13:45)
[2020-01-15] MEDS ORDERED: Iron Sucrose Complex 400 MG in 0.9 % Sodium Chloride 250 ML IVPB ONE (15:07)
[2020-01-16] MEDS: Haloperidol Oral Conc 10 MG/5 ML UDC PO SCH ×3 (00:06→12:02)
[2020-01-16] MEDS: rOPINIRole 1 MG TABLET PO SCH ×3 (00:07→12:10)
[2020-01-16] MEDS: Pantoprazole 40 MG VIAL IVP SCH (06:01)
[2020-01-16] MEDS: Sennosides/Docusate Sodium TABLET PO SCH (07:53)
[2020-01-16 08:05] VITALS: BP 107/78
== END 2020-01-16 14:29 | disposition hospice, home (50) | DRG 374 ==
LOC: 3BNU → SUATTDRO 14:20
PROVIDERS: ADMIT Internal Medicine; ATTEND Student in an Organized Health Care Education/Training Program